=== PATIENT | female | born 1945 | race Hispanic/Latino ===

== ENCOUNTER → 2020-09-22 | Outpatient (CLI) | payer OTHER | END | disposition home or self-care (01) | LOC: RAH 08:04 | PROVIDERS: ATTEND Neurological Surgery | DX: M47.26 Other spondylosis with radiculopathy, lumbar region (principal); M51.16 Intervertebral disc disorders with radiculopathy, lumbar region; M48.061 Spinal stenosis, lumbar region without neurogenic claudication; M25.78 Osteophyte, vertebrae | CPT/HCPCS: 72148 ==

== ENCOUNTER → 2020-10-10 | Outpatient (CLI) | payer MEDICARE, OTHER | END | disposition home or self-care (01) | LOC: SHCH 08:22 | PROVIDERS: ATTEND Internal Medicine Cardiovascular Disease | DX: I10 Essential (primary) hypertension (principal); E66.9 Obesity, unspecified; E78.5 Hyperlipidemia, unspecified; Z83.3 Family history of diabetes mellitus | CPT/HCPCS: 93306; 93356 ==

== ENCOUNTER 2020-10-23 11:00 | Observation (INO) | payer OTHER ==
[~2020-10-23] VITALS: Ht 149.9 cm; Wt 112.6 kg
[2020-10-23 12:36] LABS: BASOPHILS % (AUTO) 0.5 % (0.0-5.0); EOSINOPHILS % (AUTO) 1.7 % (0.0-8.0); HEMATOCRIT 38.5 % (36-48); LYMPHOCYTES % (AUTO) 29.7 % (21.0-51.0); MEAN CORPUSCULAR HEMOGLOBIN 30.6 pg (27.0-33.0); MEAN CORPUSCULAR HGB CONC 31.9 g/dL (32.0-36.0); MEAN CORPUSCULAR VOLUME 95.8 fL (79-99); MONOCYTES % (AUTO) 8.2 % (3.0-13.0); NEUTROPHILS % (AUTO) 59.6 % (40.0-77.0); PLATELET COUNT (AUTO) 195 K/uL (130-400); RED BLOOD CELL COUNT(AUTO) 4.02 MIL/uL (4.00-5.50); RED CELL DISTRIBUTION WIDTH 13.3 % (11.0-15.5); WHITE BLOOD COUNT (AUTO) 6.3 K/uL (4.8-10.8)
[2020-10-23 12:49] LABS: POTASSIUM 4.9 mmol/L (3.5-5.1)
[2020-10-24 08:59] VITALS: BP 133/69
[2020-10-24] MEDS ORDERED: CARV12.580 PO (11:07)
[2020-10-24] MEDS ORDERED: [UNRECOGNIZED DRUG - OTHER] PO (11:07)
[2020-10-24] MEDS ORDERED: IBUP-2077 PO (11:07)
[2020-10-24] MEDS ORDERED: SOLI10TA PO (11:07)
[2020-10-24] MEDS ORDERED: ALBU18HF7 IH (11:07)
[2020-10-24] MEDS ORDERED: ACET-2743 PO (11:07)
[2020-10-24] MEDS ORDERED: LOSA100T58 PO (11:07)
[2020-10-24] MEDS ORDERED: CHLO50TA PO (11:07)
[2020-10-24] MEDS ORDERED: FLUT1DIS IH (11:07)
[2020-10-24] MEDS ORDERED: BACL10TA PO (11:07)
[2020-10-24] MEDS ORDERED: CLON0.1T PO (11:07)
[2020-10-24] MEDS ORDERED: DOXA2TAB2 PO (11:07)
[2020-10-25] VITALS (24 sets, daily range): BP systolic 117–165; BP diastolic 53–89
[2020-10-25] MEDS: CEFAZOLIN SODIUM 1 GM VIAL IVP SCH ×2 (06:00→08:15)
[2020-10-25] MEDS ORDERED: LACTATED RINGERS 1000ML 1,000 ML IV ONE (06:18)
[2020-10-25] MEDS ORDERED: BUPIVACAINE/EPI/PF 0.25% 30ML VIAL IJ ONE (06:42)
[2020-10-25] MEDS ORDERED: CEFAZOLIN SODIUM 1 GM VIAL ONE (06:42)
[2020-10-25] MEDS ORDERED: MORPHINE PF 100MG/10ML AMP IV ONE (06:43)
[2020-10-25] MEDS ORDERED: THROMBIN-JMI 20000 UNIT KIT TP ONE (06:43)
[2020-10-25] MEDS ORDERED: SUCCINYLCHOLINE CHLORIDE 20 MG/ML 10 ML VIAL ONE (07:03)
[2020-10-25] MEDS ORDERED: LIDOCAINE PF 100MG/5ML (2%) SYRINGE 5ML ONE (07:03)
[2020-10-25] MEDS ORDERED: ONDANSETRON 4MG INJ ONE (07:04)
[2020-10-25] MEDS ORDERED: PROPOFOL 10 MG/ML 20ML VIAL IV ONE (07:04)
[2020-10-25] MEDS ORDERED: NEOSTIGMINE 5MG/5ML SYR IV ONE (07:04)
[2020-10-25] MEDS ORDERED: DEXAMETHASONE SOD PHOSPHATE 10MG/ML 1ML VIAL ONE (07:04)
[2020-10-25] MEDS ORDERED: GLYCOPYRROLATE 1 MG/5 ML SYRINGE ONE (07:04)
[2020-10-25] MEDS ORDERED: ROCURONIUM 10MG/1ML SYR 10 MG/ML ML ONE (07:04)
[2020-10-25] MEDS ORDERED: MIDAZOLAM HCL 1 MG/ML 2ML VIAL ONE (07:04)
[2020-10-25] MEDS ORDERED: FENTANYL CITRATE PF 50 MCG/1 ML 2ML VIAL ONE ×2 (07:05→10:18)
[2020-10-25] MEDS ORDERED: ALBUTEROL 0.083% 2.5 MG/3 ML INH IH PRN (11:30)
[2020-10-25] MEDS ORDERED: PROMETHAZINE HCL 25 MG/ML 1ML AMPULE IM PRN (11:30)
[2020-10-25] MEDS ORDERED: CLONIDINE HCL 0.1 MG TABLET PO PRN (11:30)
[2020-10-25] MEDS ORDERED: IBUPROFEN 800 MG TAB PO PRN (11:30)
[2020-10-25] MEDS ORDERED: 0.9%NACL 10ML VIAL IVP PRN (11:30)
[2020-10-25] MEDS ORDERED: MORPHINE 2 MG SYG IVP PRN (11:30)
[2020-10-25] MEDS ORDERED: ACETAMINOPHEN 500 MG TABLET PO PRN (11:30)
[2020-10-25] MEDS ORDERED: HYDROCODONE/ACETAMINOPHEN 5/325 MG TAB PO PRN (11:30)
[2020-10-25] MEDS: LACTATED RINGERS 1000ML 1,000 ML IV SCH (13:02)
[2020-10-25] MEDS: DEXAMETHASONE SOD PHOSPHATE 4 MG/ML 1ML VIAL IVP SCH ×2 (13:02→18:05)
[2020-10-25] MEDS: OXYBUTYNIN CHLORIDE 5 MG TABLET PO SCH ×2 (14:00→20:58)
[2020-10-25] MEDS ORDERED: CEFAZOLIN SODIUM 1 GM VIAL IVP SCH (16:00)
[2020-10-25] MEDS: BUDESONIDE 0.5 MG/2 ML INH IH SCH (18:00)
[2020-10-25] MEDS: ALBUTEROL 0.083% 2.5 MG/3 ML INH IH SCH (18:00)
[2020-10-25] MEDS: BACLOFEN 10 MG TABLET PO SCH (20:58)
[2020-10-25] MEDS ORDERED: [UNRECOGNIZED DRUG - OTHER] PO SCH (21:00)
[2020-10-25] MEDS: CARVEDILOL 12.5 MG TABLET PO SCH (21:01)
[2020-10-26] MEDS: DEXAMETHASONE SOD PHOSPHATE 4 MG/ML 1ML VIAL IVP SCH ×2 (00:22→05:32)
[2020-10-26] MEDS: LACTATED RINGERS 1000ML 1,000 ML IV SCH (00:50)
[2020-10-26 04:02] VITALS: BP_SYST 112; BP_SYST 129; BP_DIAS 59; BP_DIAS 62
[2020-10-26] MEDS: ALBUTEROL 0.083% 2.5 MG/3 ML INH IH SCH (06:00)
[2020-10-26] MEDS: BUDESONIDE 0.5 MG/2 ML INH IH SCH (06:00)
[2020-10-26 08:03] VITALS: BP 115/54
[2020-10-26] MEDS ORDERED: CHLORTHALIDONE 50 MG PO SCH (09:00)
[2020-10-26] MEDS ORDERED: LOSARTAN 100 MG TABLET PO SCH (09:00)
[2020-10-26] MEDS ORDERED: DOXAZOSIN MESYLATE 2 MG TABLET PO SCH (09:00)
[2020-10-26] MEDS: CARVEDILOL 12.5 MG TABLET PO SCH (09:00)
[2020-10-26] MEDS: BACLOFEN 10 MG TABLET PO SCH (09:00)
[2020-10-26] MEDS: OXYBUTYNIN CHLORIDE 5 MG TABLET PO SCH (09:00)
== END 2020-10-26 11:20 | disposition home or self-care (01) ==
LOC: EDSTATUS 11:00 → DAHIP 10-25 05:48 → 3BH 10-25 12:39
PROVIDERS: ADMIT Neurological Surgery; ATTEND Neurological Surgery
DX: M48.061 Spinal stenosis, lumbar region without neurogenic claudication (principal); Z20.822 Contact with and (suspected) exposure to COVID-19; I10 Essential (primary) hypertension; J45.909 Unspecified asthma, uncomplicated; G47.30 Sleep apnea, unspecified; K59.00 Constipation, unspecified; M19.90 Unspecified osteoarthritis, unspecified site; Z90.710 Acquired absence of both cervix and uterus; Z96.653 Presence of artificial knee joint, bilateral; Z79.899 Other long term (current) drug therapy; Z98.890 Other specified postprocedural states; Z90.49 Acquired absence of other specified parts of digestive tract
CPT/HCPCS: 36415; 63047; 63048 ×3; 72020; 80051; 85025; 87635; 96361; 96374; 96375; 96376 ×2; 97039; 97116; 97161; A4215; A4221; A4222; A4223; A4344; A4510; A4600; A4649 ×3; A4663; A6260; C1713; G0378 ×23; G8978; G8979; G8980; G8981; G8982; G8983; J0330; J0690 ×4; J1100 ×6; J2001; J2250; J2274; J2405; J2704; J2710; J3010 ×2; J3490 ×2; J7120 ×4